=== PATIENT | male | born 1995 | race Caucasian/White ===

== ENCOUNTER 2022-07-14 10:17 | Emergency (ER) | payer OTHER, SELFPAY ==
[2022-07-14 10:22] VITALS: BP 143/91; PULSE 109; RESP 18; TEMP 37.1; O2SAT 96; BMI 33.7
--- NOTE | 2022-07-14 10:47 | CRLHL7_ITS ---
For Patients: As a result of the Century Cures Act, medical imaging exams and procedure reports are released immediately into your electronic medical record. You may view this report before your referring provider. If you have questions, please contact your health care provider. INDICATION: Cough. TECHNIQUE: Chest 2 views. COMPARISON: None. FINDINGS: Cardiovascular and mediastinum: Heart size and vasculature are normal in caliber and appearance. Lungs and pleural spaces: Lungs are clear. No sign of infiltrate or mass. No sign of pleural effusion. No pneumothorax. Bones and soft tissues: No significant findings. IMPRESSION: No acute or significant findings. Dictated by Theo Jacques MD @ 07/14/2022 11:10:48 AM (Electronically Signed)
--- NOTE | 2022-07-14 10:48 | ED_ITS ---
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 He has not had any asthma or chronic lung disease, he reports he smokes cigarettes occasionally. No fevers, chills, reports he has had more production to his cough of a whitish sputum recently. He has not had any treatment or medications. He has had no bleeding or clotting problems, heart issues. He has had no leg swelling or edema no travel. Related Data Previous Rx's Medication Instructions Recorded doxycycline hyclate 100 mg capsule 100 mg PO BID #10 caps 07/14/22 prednisone 20 mg tablet 20 mg PO BID 5 days #10 tabs 07/14/22 Allergies Allergy/AdvReac Type Severity Reaction Status Date / Time nima Allergy Mild Rash Uncoded 07/14/22 10:28 Review of Systems Status of ROS: Reports: 6 or more systems reviewed and unremarkable except as noted in History and below [facility] Non-prescribed substance use: denies use Exam Narrative: Exam Narrative: Objective: Patient's vital signs show elevated pulse of 109 otherwise unremarkable, O2 sat is normal at 96% HEENT is unremarkable Neck is supple Chest is clear no rales or wheezing Heart rhythm regular heart murmur Abdomen benign soft Extremities are no edema neurologic nonfocal Skin periphery warm and dry Const: Vital Signs, click to edit/add: Vital Signs - 24 hr 07/14/22 10:22 Temperature 98.7 F Pulse Rate [Right Pulse Oximeter] 109 H Respiratory Rate 18 Blood Pressure [Ri ght Upper Arm] 143/91 H Pulse Oximetry 96 Oxygen Delivery Me thod Room Air Course Vital Signs Vital signs: Initial Vital Signs Temperature 98.7 F 07/14/22 10:22 Temperature Source Temporal Artery Scan 07/14/22 10:22 Pulse Rate 109 H 07/14/22 10:22 Respiratory Rate 18 07/14/22 10:22 Blood Pressure 143/91 H 07/14/22 10:22 Blood Pressure Mean 108 07/14/22 10:22 Blood Pressure Position Sitting 07/14/22 10:22 Pulse Oximetry 96 07/14/22 10:22 Oxygen Delivery Method 07/14/22 10:22 Vital Signs Temperature 98.7 F 07/14/22 10:22 Pulse Rate 109 H 07/14/22 10:22 Respiratory Rate 18 07/14/22 10:22 Blood Pressure 143/91 H 07/14/22 10:22 Pulse Oximetry 96 07/14/22 10:22 Oxygen Delivery Method 07/14/22 10:22 Temperature 98.7 F 07/14/22 10:22 Pulse Rate 109 H 07/14/22 10:22 Respiratory Rate 18 07/14/22 10:22 Blood Pressure 143/91 H 07/14/22 10:22 Pulse Oximetry 96 07/14/22 10:22 Oxygen Delivery Method 07/14/22 10:22 Medical Decision Making MDM Narrative Medical decision making narrative: Patient does have a history of intermittent cough over the last year, no history of asthma reactive airway disease. Patient is working in a poultry industry however, and wonder if he has some type of hypersensitivity pneumonitis. Will check a chest x-ray, laboratory studies, D-dimer to exclude pulmonary embolus. Will also check CT triple swab. Disposition pending findings above. I suspect the patient may benefit from albuterol and steroids. Will see his labs above look. Addendum: Patient's chest x-ray by my read looks unremarkable, his white count slightly elevated, feet labs are unremarkable including D-dimer and triple swab. I think it be reasonable to treat him with doxycycline and prednisone for few days, follow up with regular doctor, return if problems or concerns sooner otherwise follow up with primary care in the next few days. Lab Data Labs: Lab Results 07/14/22 07/14/22 07/14/22 Range/Units 11:00 11:10 11:10 WBC 16.06 H (4.50-11.00) K/uL RBC 6.28 H (4.30-5.90) m/uL Hgb 17.7 H (13.5-17.5) gm/dL Hct 51.7 (37.0-53.0) % MCV 82 (80-100) fL MCH 28 (26-34) pg MCHC 34 (32-36) gm/dL RDW Coeff of Alida 12.7 (11.5-15.5) % Plt Count 289 (140-440) K/uL Neut % (Auto) 77.5 H (42.0-72.0) % Lymph % (Auto) 12.4 L (20-44) % Bailey % (Auto) 6.5 (0.0-11.0) % Eos % (Auto) 3.4 (0.0-7.0) % Baso % (Auto) 0.1 (0.0-3.0) % Neut # (Auto) 12.40 H (1.7-7.0) K/uL Lymph # (Auto) 2.00 (0.90-2.90) K/uL Bailey # (Auto) 1.00 H (0.00-0.90) K/UL Eos # (Auto) 0.50 (0.00-0.50) K/uL Baso # (Auto) 0.00 (0.00-0.30) K/uL D-Dimer Quant (PE/DVT) 0.27 (0.00-0.50) ug/ml Sodium (135-149) mmol/L Potassium (3.6-5.1) mmol/L Chloride (96-114) mmol/L Carbon Dioxide (20-32) mmol/L BUN (5-24) mg/dL Creatinine (0.5-1.5) mg/dL Estimated Creat Clear Estimated GFR ml/min Glucose (60-115) mg/dL Calcium (8.4-10.6) mg/dL C-Reactive Protein (0.5-1.0) mg/dL SARS-CoV-2 (PCR) Negative SARS-CoV-2 (Negative) Influenza Type A (PCR) Negative PCR FLU A (Negative) Influenza Type B (PCR) Negative PCR FLU B (Negative) RSV (PCR) Negative PCR RSV (Negative) 07/14/22 Range/Units 11:10 WBC (4.50-11.00) K/uL RBC (4.30-5.90) m/uL Hgb (13.5-17.5) gm/dL Hct (37.0-53.0) % MCV (80-100) fL MCH (26-34) pg MCHC (32-36) gm/dL RDW Coeff of Alida (11.5-15.5) % Plt Count (140-440) K/uL Neut % (Auto) (42.0-72.0) % Lymph % (Auto) (20-44) % Bailey % (Auto) (0.0-11.0) % Eos % (Auto) (0.0-7.0) % Baso % (Auto) (0.0-3.0) % Neut # (Auto) (1.7-7.0) K/uL Lymph # (Auto) (0.90-2.90) K/uL Bailey # (Auto) (0.00-0.90) K/UL Eos # (Auto) (0.00-0.50) K/uL Baso # (Auto) (0.00-0.30) K/uL D-Dimer Quant (PE/DVT) (0.00-0.50) ug/ml Sodium 142 (135-149) mmol/L Potassium 4.5 (3.6-5.1) mmol/L Chloride 104 (96-114) mmol/L Carbon Dioxide 28 (20-32) mmol/L BUN 12 (5-24) mg/dL Creatinine 0.8 (0.5-1.5) mg/dL Estimated Creat Clear 133.12 Estimated GFR 127 ml/min Glucose 103 (60-115) mg/dL Calcium 9.8 (8.4-10.6) mg/dL C-Reactive Protein 1.0 (0.5-1.0) mg/dL SARS-CoV-2 (PCR) (Negative) Influenza Type A (PCR) (Negative) Influenza Type B (PCR) (Negative) RSV (PCR) (Negative) Discharge Plan Discharge Clinical Impression: Cough Patient Disposition: Home, Self-Care Additional Instructions: Light activity, fluids, prednisone and doxycycline, recheck with primary care in the next 3-5 days. Activity Level: No Restrictions Discharge Diet: Regular Prescriptions: New doxycycline hyclate 100 mg capsule 100 mg PO BID Qty: 10 0RF prednisone 20 mg tablet 20 mg PO BID 5 Days Qty: 10 0RF Stand Alone Forms: MyHealth Info Instructions
[2022-07-14 11:27] LABS: Basophils Percent Auto 0.1 % (0.0-3.0); Eosinophils Percent Auto 3.4 % (0.0-7.0); Hematocrit 51.7 % (37.0-53.0); Hemoglobin* 17.7 gm/dL (13.5-17.5); Immature Granulocytes Pct Auto 0.1 %; Lymphocytes Percent Auto 12.4 % (20-44); Mean Corpuscular HGB Conc 34 gm/dL (32-36); Mean Corpuscular Hemoglobin 28 pg (26-34); Mean Corpuscular Volume 82 fL (80-100); Monocytes Percent Auto 6.5 % (0.0-11.0); Neutrophils Percent Auto 77.5 % (42.0-72.0); Platelet Count* 289 K/uL (140-440); RDW Coefficient of Variation % 12.7 % (11.5-15.5); Red Blood Count 6.28 m/uL (4.30-5.90); White Blood Count* 16.06 K/uL (4.50-11.00)
[2022-07-14 11:35] LABS: Slide Review Reflex No
[2022-07-14 11:43] LABS: Chloride* 104 mmol/L (96-114); Potassium* 4.5 mmol/L (3.6-5.1); Sodium* 142 mmol/L (135-149)
[2022-07-14 11:43] LABS: PCR FLU A Negative PCR FLU A (Negative); PCR FLU B Negative PCR FLU B (Negative); PCR RSV Negative PCR RSV (Negative)
[2022-07-14 11:44] LABS: Blood Urea Nitrogen* 12 mg/dL (5-24); Calcium* 9.8 mg/dL (8.4-10.6); Carbon Dioxide* 28 mmol/L (20-32); Creatinine* 0.8 mg/dL (0.5-1.5); Est. Creatinine Clearance* 133.12; Estimated Glomerular Filt Rate 127 ml/min; Glucose* 103 mg/dL (60-115)
[2022-07-14 11:46] LABS: SARS PCR* Negative SARS-CoV-2 (Negative)
[2022-07-14 11:49] LABS: D Dimer Quantitative* 0.27 ug/ml (0.00-0.50)
== END 2022-07-14 12:45 | disposition home or self-care (01) ==
PROVIDERS: Emergency Provider Family Medicine
DX: R05.9 Cough, unspecified (principal)
CPT/HCPCS: 36415; 71046; 80048; 85025; 85379; 86140; 87502; 87634; 87635; 99284